=== PATIENT | female | born 1990 | race Hispanic/Latino ===

== ENCOUNTER 2022-05-26 12:58 | Outpatient (CLI) | payer BC | END 2022-05-26 12:59 | disposition home or self-care (01) | LOC: BICRAD 12:58 | PROVIDERS: ATTEND Specialist | DX: R06.00 Dyspnea, unspecified (principal) | CPT/HCPCS: 71046 ==

== ENCOUNTER 2023-01-20 13:04 | Outpatient (CLI) | payer BC | END 2023-01-20 13:05 | disposition home or self-care (01) | LOC: BICRAD 13:04 | PROVIDERS: ATTEND Specialist | DX: M54.2 Cervicalgia (principal) | CPT/HCPCS: 72040 ==